=== PATIENT | male | born 1940 | race Caucasian/White ===

== ENCOUNTER 2018-07-19 07:19 | Day surgery (SDC) | payer OTHER ==
[~2018-07-19] VITALS: Ht 175.3 cm; Wt 96.2 kg
[~2018-07-19 07:19] MED LIST: AMLO5 PO; [UNRECOGNIZED DRUG - REMARK] PO
--- NOTE | 2018-07-19 07:52 | NUR ---
Ambulatory in Day Surgery History, Chart, Medications and Allergies reviewed before start of procedure.Patient confirms NPO status and agrees with scheduled surgery. Pre-Op teaching done. Pt verbalizes understanding. Patient States Post-Procedure ride home has been arranged. PT BP HIGH. WILL NOTIFY PRIMARY RN. MYKEL RN WILL ASSUME CARE OF PT.
--- NOTE | 2018-07-19 08:16 | NUR ---
Ambulatory in Day Surgery History, Chart, Medications and Allergies reviewed before start of procedure.Patient confirms NPO status and agrees with scheduled surgery. Patient reports completing Chlorhexadine shower X2 prior to admission to hospital.Surgical site prepped with 2% Chlorhexidine cloth wipe.
--- NOTE | 2018-07-19 11:16 | NUR ---
Discharge instructions reviewed with patient. Patient verbalizes understanding. Copy given to patient to take home. Discharged via wheelchair to private car for ride home WITH DAUGHTER.
== END 2018-07-19 22:48 | disposition home or self-care (01) ==
LOC: ORSCMMR 07:19 → ORD 09:00 → ORSCMMR 22:48
PROVIDERS: Surgery
PROC: 0FT44ZZ Resection of Gallbladder, Percutaneous Endoscopic Approach (ICD-10-PCS; principal; 2018-07-19 09:00)
DX: K80.10 Calculus of gallbladder with chronic cholecystitis without obstruction (principal); I10 Essential (primary) hypertension; Z79.899 Other long term (current) drug therapy
CPT/HCPCS: 88304; A9270-GY; J0330; J0694; J1100; J2250; J2370; J2405; J2710; J3010; J7120

== ENCOUNTER → 2019-11-02 | Outpatient (CLI) | payer OTHER | END | disposition home or self-care (01) | LOC: LAB FUT 10-31 16:35 → LAB 13:07 → LAB SHORT 13:07 | DX: R19.7 Diarrhea, unspecified (principal) | CPT/HCPCS: 87015; 87045; 87046; 87177; 87205; 87209; 87493; 87899 ==